=== PATIENT | male | born 1990 | race Caucasian/White ===

== ENCOUNTER 2018-11-26 12:12 | Emergency (ER) | payer BC, OTHER ==
[2018-11-26 12:34] VITALS: BP 121/71; PULSE 61; RESP 16; TEMP 98; O2SAT 99
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
--- NOTE | 2018-11-26 14:50 | RAD ---
Date of service: 11/26/2018 PROCEDURE: Left Foot Radiographs. HISTORY: Unspecified left foot injury. COMPARISON: None. TECHNIQUE: 3 views obtained. FINDINGS: BONES: Normal. No fracture. JOINTS: Normal. SOFT TISSUES: Normal. OTHER FINDINGS: None. IMPRESSION: Normal left foot radiographs.
== END 2018-11-26 14:40 | disposition home or self-care (01) ==
LOC: H.ER 12:12
DX: S90.112A Contusion of left great toe without damage to nail, initial encounter (principal); W50.0XXA Accidental hit or strike by another person, initial encounter